=== PATIENT | female | born 1950 | race Caucasian/White ===

== ENCOUNTER 2025-08-27 17:26 | Inpatient (IN) | payer OTHER ==
[~2025-08-27] VITALS: Ht 160 cm; Wt 53.2 kg
--- NOTE | 2025-08-27 17:36 | ED.PDOC ---
Musculoskeletal HPI Comments HPI: 74 year old female presents to the emergency department via EMS with a chief complaint of LT hip pain s/p fall onset today. Per EMS, patient was in her backyard, fell, landing on LT side, was found about 1 hour after by family. Patient states she tripped over her dog's chain, is currently experiencing LT hip pain radiates to Lt leg. Currently rates pain 10/10. Denies LOC, head injury, nausea, vomiting, diarrhea, headache, dizziness, chest pain. No other symptoms or modifying factors present at this time. Initial Vitals BP: 125/81 HR: 101 RR: O2 Sat: 98% Temp: Past Medical history: Arthritis, COPD, HTN Past Surgical history: Denies Medications: Tramadol, Lisinopril Social History: Denies smoking, ETOH, and drug use. Allergies: NKDA FAZZI: FALL, L HIP PAIN, NO OF CONSCIOUSNESS, NO BLOOD THINNERS, NO HEAD INJURY, TRIP AND FALL FROM A STANDING POSITION HPI: Poor Historian. REVIEW OF SYSTEMS: CONSTITUTIONAL: Denies acute: fever, diaphoresis, chills, generalized weakness. HEAD: Denies acute: headache, photophobia Eyes: Denies acute: Double vision, vision loss, eye pain, eye discharge. EARS: Denies acute: tinnitus, hearing loss, ear discharge, ear pain, THROAT: Denies acute: sore throat, swelling, difficulty swallowing , pain with swallowing, change in voice. NECK: Denies acute: neck pain, neck swelling, stiff neck. HEART: Denies acute : chest pain, palpitations, LUNGS: Denies acute: SOB, wheezing, cough, hemoptysis ABDOMEN: Denies acute: abdominal pain, Nausea, Vomiting, diarrhea, melena , hematemesis, hematochezia SKIN: Denies acute: rash, redness, lesions, itchiness. EXTREMITIES: Denies acute: calf pain, numbness, tingling, weakness, denies pain in extremity. Denies acute: Low back pain. Neuro: Denies acute: focal neurological deficit, motor or sensory focal neurological deficit, tremors, seizure like activity, confusion, dizziness, change in mental status, loss of bowel or bladder function, cauda equina like symptoms. : Denies acute: dysuria, hematuria, flank pain, increase in urinary frequency. PSYCH: Denies acute: hallucination, suicidal ideation, homicidal ideation. FEMALE: Denies acute: abnormal vaginal bleeding, foul odor, unusual discharge. PHYSICAL EXAM: General: ----moderate----acute distress, awake and alert. Head: normocephalic, atraumatic. No raccoon's eyes, no myrick sign. Neck: supple, trachea is midline, no swelling. Throat: Normal phonation. Eyes:, no erythema, no purulent discharge, no proptosis, no icterus. Heart: regular rate, regular rhythm, no significant murmur appreciated. Lungs: no apparent respiratory distress, Able to speak in full sentences. No wheezing, no rhonchi, no crackles. No stridors Clear to auscultation bilaterally. Abdomen: non tender to palpation, non distended, soft, no guarding, no rebound, + bowel sounds. Neuro: Awake, Alert, oriented to name, self, situation, follows commands GCS=15. Speech is normal. Skin: no petechia, no purpura, no cyanosis, non-pale, not jaundice. Lower extremities: --no - Pitting edema no deformity, no focal swelling, no calf TTP. Makes eye contact. Decreased range of motion of left lower extremity secondary to left hip pain. Face: no apparent facial droop. Pedal pulses are palpable. ED COURSE: DISCLAIMER: This medical document was created using an electronic medical record system with voice recognition software and computerized dictation system. Although this document has been carefully reviewed, there might still be some phonetic and typographical errors. Occasional wrong-word or "sound-alike" substitutions may have occurred due to the inherent limitations of voice recognition software. These areas are purely typographical due to imperfections of the software programs and do not reflect any compromise in the patient's medical care. Please read the chart carefully and recognize, using context, where these substitutions have occurred. Time Seen by MD: 17:25 Primary Care Provider: JANELLE Castelan Notes: Medications, Allergies Allergies: Coded Allergies: NO KNOWN ALLERGIES (Unverified , 01/11/14) Information Source: Patient, Emergency Med Personnel Mode of Arrival: EMS Timing: Hours Prehospital treatment: None Past Medical History PAST MEDICAL HISTORY: Arthritis, COPD, HTN Surgical History: Denies all surgeries PARACHUTE HARNESS RIGGER History: No Pertinent PARACHUTE HARNESS RIGGER History Family History Family History: Unknown, Unobtainable Social History Smoker: Cigarettes Alcohol: Denies ETOH Use Drugs: Denies Drug Use Lives In: Home Was a procedure done? Was a procedure done?: No X-Ray, Labs, Meds, VS Vital Signs Date Time Temp Pulse Resp B/P (MAP) Pulse Ox O2 Delivery O2 Flow Rate FiO2 08/27/25 21:13 118/58 08/27/25 19:35 105 20 98 Room Air* 0 21 08/27/25 19:16 98.3 113 20 128/72 (90) 96 98.3 08/27/25 18:00 122/69 08/27/25 17:45 113 20 98 Room Air* 0 21 08/27/25 17:35 98.2 103 18 125/81 98 98.2 Lab Test 08/27/25 20:03 08/27/25 17:53 Range/Units Urine Color Pending Urine Clarity Pending Urine pH Pending Urine Specific [place] Pending Urine Protein Pending Urine Ketones Pending Urine Blood Pending Urine Nitrite Pending Urine Bilirubin Pending Urine Urobilinogen Pending Urine Leukocyte Esterase Pending Urine RBC Pending Urine Microscopic WBC Pending Urine Squamous Epithelial Cells Pending Urine Bacteria Pending Urine Glucose Pending White Blood Count 13.1 H 4.4-10.8 10^3/uL Red Blood Count 4.69 4.0-5.20 10^6/uL Hemoglobin 13.7 12.2-16.2 g/dL Hematocrit 42.2 36.0-46.0 % Mean Corpuscular Volume 90.0 80.0-100.0 fL Mean Corpuscular Hemoglobin 29.3 28.0-32.0 pg Mean Corpuscular Hemoglobin Concent 32.5 32.0-36.0 g/dL Red Cell Distribution Width 14.4 H 11.8-14.3 % Platelet Count 299 140-450 10^3/uL Mean Platelet Volume 8.2 6.9-10.8 fL Neutrophils (%) (Auto) 82.1 H 37.0-80.0 % Lymphocytes (%) (Auto) 10.4 10.0-50.0 % Monocytes (%) (Auto) 7.0 0.0-12.0 % Eosinophils (%) (Auto) 0.1 0.0-7.0 % Basophils (%) (Auto) 0.4 0.0-2.0 % Neutrophils # (Auto) 10.8 H 1.6-8.6 10 ^3/uL Lymphocytes # (Auto) 1.4 0.4-5.4 10 ^3/uL Monocytes # (Auto) 0.9 0-1.3 10 ^3/uL Eosinophils # (Auto) 0 0-0.8 10 ^3/uL Basophils # (Auto) 0.1 0-0.2 10 ^3/uL Nucleated Red Blood Cells 0.0 % Sodium Level 138 136-145 mmol/L Potassium Level 4.3 3.5-5.1 mmol/L Chloride Level 105 98-107 mmol/L Carbon Dioxide Level 20 20-31 mmol/L Anion Gap 13 5-15 Blood Urea Nitrogen 30 H 9-23 mg/dL Creatinine 1.33 H 0.550-1.02 mg/dL Glomerular Filtration Rate Calc 42 >90 mL/min BUN/Creatinine Ratio 22.6 H 10.0-20.0 Serum Glucose 173 H 74-106 mg/dL Calcium Level 10.1 8.7-10.4 mg/dL Total Bilirubin 0.3 0.2-1.0 mg/dL Aspartate Amino Transferase (AST) 31 13-40 U/L Alanine Aminotransferase (ALT) 25 7-40 U/L Alkaline Phosphatase 52 46-116 U/L Creatine Kinase 431 H 34-145 U/L Total Protein 6.7 5.7-8.2 g/dL Albumin 4.2 3.2-4.8 g/dL Current Medications Medications (Trade) Dose Ordered Sig/Joana Route Start Time Stop Time Status Last Admin Fentanyl Citrate 100 mcg ONCE ONCE IV 08/27/25 17:45 08/27/25 17:48 DC 08/27/25 18:00 Sodium Chloride 500 ml @ 500 mls/hr Q1H ONCE IV 08/27/25 17:45 08/27/25 18:44 DC 08/27/25 21:14 Fentanyl Citrate 100 mcg ONCE ONCE IV 08/27/25 21:00 08/27/25 21:01 DC 08/27/25 21:[address] [address] Ph: [phone] DIAGNOSTIC IMAGING Diagnostic Imaging Report : [id number] Signed PATIENT: DUANE GUZMÁN ACCT: [id number] UNIT: [id number] : 1950 LOC: ER ROOM / BED: / AGE / SEX: 74 / F ADM STATUS: REG ER SERVICE 28 ORDERING PHYSICIAN: ITZ FINNEGAN DO PROCEDURE(s): RHUM - R HUMERUS XRAY REASON: fall ORDER NUMBER(s): [id number], ACCESSION NUMBER(s): [id number] CLINICAL INDICATION: fall TECHNIQUE: 2 radiographic views of the right humerus were obtained. COMPARISON: None FINDINGS/IMPRESSION: There is no evidence of acute fracture or dislocation. The alignment is anatomical. There is no radiopaque foreign body. ATED BY: JENN CADET DO DICTATED DATE/TIME: 08/27/252099 SIGNED BY: JENN CADET DO SIGNED DATE/TIME: 08/27/252099 CC: Time of 1ST Reevaluation: 17:55 Reevaluation 1ST: Unchanged Patient Education/Counseling: Diagnosis, Treatment Family Education/Counseling: No Family Present Departure 1 Departure Time of Disposition: 18:44 Impression: Primary Impression: Closed comminuted intertrochanteric fracture of femur Disposition: ADMITTED INPATIENT Admit to: [facility] Condition: Guarded Discharged With: Self Critical Care Note Critical Care Time?: No I personally scribed for ITZ FINNEGAN DO ([email or web address]) on 08/27/25 at 17:36. Electronically submitted by Belkis Hernandez ([email or web address]). I personally scribed for ITZ FINNEGAN DO ([email or web address]) on 08/27/25 at 21:27. Electronically submitted by Belkis Hernandez ([email or web address]). ITZ FINNEGAN DO Aug 27, 2025 17:36
[2025-08-27 17:45] VITALS: PULSE 113; RESP 20; O2SAT 98
[2025-08-27] MEDS: fentaNYL CITRATE 100 MCG/2 ML VL IV ONE ×2 (18:00→21:13)
[2025-08-27 18:50] LABS: Hematocrit 42.2 % (36.0-46.0); Hemoglobin 13.7 g/dL (12.2-16.2); Mean Corpuscular Hemoglobin 29.3 pg (28.0-32.0); Mean Corpuscular Volume 90.0 fL (80.0-100.0); Nucleated Red Blood Cells % 0.0 %
--- NOTE | 2025-08-27 19:06 | DVH ---
PROCEDURE: CT CHST AB PEL WO CON-NO IV/ORAL Study Date and Requested Time: 08/27/2025 06:06 PM Study fall COMPARISON: None Dose: CTDI: 6.06 mGy DLP: 405.83 mGycm TECHNIQUE: Multiplanar images obtained through the chest, abdomen and pelvis without contrast FINDINGS: Chest: Enlarged heterogeneous thyroid gland. Partially visualized heart is normal in size. Trace pericardial effusion. No evidence of aortic aneurysm. Mild atherosclerotic calcification of the aorta. Moderate emphysematous changes of the lungs. No pneumothorax or pleural effusion. Right-sided Anterior and Lateral Lung fibrotic changes. No focal consolidation. Nonspecific focus of right middle lobe coarse calcification. No significant mediastinal lymphadenopathy. The soft tissues unremarkable. Mild loss of vertebral body height of T1-T6 of unknown chronicity. Chronic fracture deformity of right lateral 7th rib and right posterolateral 8th rib. Moderate s shaped curvature of the thoracic and lumbar spine. Abdomen and pelvis: Liver, spleen, pancreas and adrenal glands are unremarkable. Gallbladder is moderately distended with gallstones. Otherwise, unremarkable. 5 mm hypodense left renal lesion which may represent a hemorrhagic / proteinaceous cysts. Otherwise, Kidneys, ureters and urinary bladder are unremarkable. Uterus and adnexa are unremarkable. Large hiatal hernia. Otherwise, stomach is unremarkable. Small bowel loops unremarkable. Appendix is unremarkable. Small to moderate amount of fecal material within the colon. Descending colon and Sigmoid diverticulosis without diverticulitis. No evidence of intraperitoneal free air or free fluid. No evidence of aortic aneurysm. [id number] atherosclerotic calcification of the aorta and bilateral iliacs. No significant lymphadenopathy. Small fat containing umbilical hernia. The soft tissues unremarkable. [id number] loss of vertebral body height of L1 of unknown chronicity, likely chronic. Multilevel moderate to severe degenerative changes of the lumbar spine. Chronic fracture deformity of bilateral pubic bones. Acute/subacute appearing displaced intratrochanteric fracture of the left femur IMPRESSION: Acute /subacute displaced comminuted intratrochanteric fracture of the left femur. No evidence of acute intrathoracic or abdominopelvic abnormalities. Emphysematous and fibrotic changes of the lungs. Large hiatal hernia. Descending colon and Sigmoid diverticulosis without diverticulitis. Additional findings as above.
[2025-08-27 19:07] LABS: Alanine Aminotransferase 25 U/L (7-40); Albumin 4.2 g/dL (3.2-4.8); Alkaline Phosphatase 52 U/L (46-116); Anion Gap 13 (5-15); BUN/Creatinine Ratio 22.6 (10.0-20.0); Calcium 10.1 mg/dL (8.7-10.4); Carbon Dioxide 20 mmol/L (20-31); Chloride 105 mmol/L (98-107); Potassium 4.3 mmol/L (3.5-5.1); Sodium 138 mmol/L (136-145); Total Protein 6.7 g/dL (5.7-8.2)
[2025-08-27 19:11] LABS: Bilirubin, Total 0.3 mg/dL (0.2-1.0); Blood Urea Nitrogen 30 mg/dL (9-23); Creatine Kinase IFCC 431 U/L (34-145); Glucose 173 mg/dL (74-106)
[2025-08-27 19:35] VITALS: PULSE 105; RESP 20; O2SAT 98
--- NOTE | 2025-08-27 21:02 | DVH ---
CLINICAL INDICATION: fall TECHNIQUE: 2 radiographic views of the right humerus were obtained. COMPARISON: None FINDINGS/IMPRESSION: There is no evidence of acute fracture or dislocation. The alignment is anatomical. There is no radiopaque foreign body.
[2025-08-27] MEDS: SODIUM CHLORIDE 0.9% 500 ML IV ONE (21:14)
[2025-08-27 21:40] LABS: Urine Protein, UAD Negative (Negative)
[2025-08-27] MEDS ORDERED: MORPHINE SULFATE INJ 2 MG/ml SYRG IV PRN (22:00)
[2025-08-27] MEDS: TEMAZEPAM 15 MG CAP PO SCH (22:11)
--- NOTE | 2025-08-27 22:42 | DVHHPRES ---
History of Present Illness Resident Creating Document: DONTE LIZ RESIDENT History of Present Illness Patient is a 74-year-old female with past medical history of COPD, hypertension, anxiety /depression, insomnia, who presented to the ED with chief complaint of left hip pain status post mechanical fall at 3:30 p.m. today which is 10/10 in intensity, radiating to the left mid thigh. Patient states that she was in her backyard and tripped over dog chain falling to her left side and was found 1 hour after by family. Patient states that she did not hit her head or lose consciousness. Patient denies any dizziness, chest pain, shortness of breath, nausea, vomiting, fever, chills. PMHx: COPD, hypertension, anxiety /depression, insomnia, PSHx: Left knee replacement Family history: reviewed, noncontributory Social history: ex-smoker, denies drinking, drug u Home medication: Tramadol,Vitamin-D,temazepam, lisinopril, citalopram Allergic history: denies Patient seen at bedside. Patient has 10/10 left hip pain. patient denies any nausea, vomiting, fever, chills. Left leg pulses are felt, Patient is able to wiggle her toes and leg is warm to touch. Review of Systems Constitutional: No: Fever, Chills, Sweats, Weakness, Malaise, Other Eyes: No: Pain, Vision change, Conjunctivae inflammation, Eyelid inflammation, Other, Redness ENT: No: Ear pain, Ear discharge, Nose pain, Nose discharge, Nose congestion, Mouth pain, Mouth swelling, Throat pain, Throat swelling, Other Respiratory: No: Cough, Dry, Shortness of breath, SOB with excertion, Wheezing, Hemoptysis, Pleuritic Pain, Sputum, Wheezing, Other Cardiovascular: No: Chest Pain, Palpitations, Orthopnea, Paroxysmal Noc. Dyspnea, Edema, Lt Headedness, Other Gastrointestinal: No: Nausea, Vomiting, Abdominal Pain, Diarrhea, Constipation, Melena, Hematochezia, Other Genitourinary: No Dysuria, No Frequency, No Incontinence, No Hematuria, No Retention, No Other Musculoskeletal: shoulder pain, leg pain; No: other, neck pain, arm pain, back pain, hand pain, foot pain Skin: No: Rash, Lesions, Jaundice, Bruising, Other Neurological: No: Weakness, Numbness, Incoordination, Change in speech, Confusion, Seizures, Other Allergies: Coded Allergies: NO KNOWN ALLERGIES (Unverified , 01/11/14) Medications Current Medications Medications Dose Ordered Sig/Joana Route Start Time Stop Time Status Last Admin Dose Admin Temazepam 15 mg HS PO 08/27/25 22:00 UNV Acetaminophen 650 mg Q6HR PO 08/28/25 00:00 UNV Exam Vital Signs Vital Signs Date Time Temp Pulse Resp B/P (MAP) Pulse Ox O2 Delivery O2 Flow Rate FiO2 08/27/25 21:13 118/58 08/27/25 19:35 105 20 98 Room Air* 0 21 08/27/25 19:16 98.3 98.3 Exam General: Patient alert and oriented in person, place and time. Patient following commands. HEENT: Normocephalic, atraumatic, moist mucous membranes Respiratory/pulmonary: Clear lungs bilaterally, vesicular murmurs present in almost all lung perales, no associated crackles or wheezes. Cardiovascular: Normal heart sounds S1 and S2 with no associated murmurs Abdomen: Abdomen nondistended, there is no pain to palpation in any of the abdominal quadrants, no palpable masses. Extremities: left hip tenderness, patient is able to wiggle left toes Peripheral Pulses: 3+ Radial (R). 3+ Radial (L). 3+ Dorsalis pedis (R). 3+ Dorsalis pedis(L) Skin: multiple bruises all over body Neurological: Intact cranial nerves with no focal neurologic deficits Labs/Xrays Labs Test 08/27/25 20:03 08/27/25 17:53 Range/Units Urine Color Light-yellow Yellow Urine Clarity Clear Clear Urine pH 5.5 5.0-9.0 Urine Specific [place] 1.018 1.001-1.035 Urine Protein Negative Negative Urine Ketones Negative Negative Urine Blood Negative Negative /uL Urine Nitrite Negative Negative Urine Bilirubin Negative Negative Urine Urobilinogen Normal Negative mg/dL Urine Leukocyte Esterase Negative Negative /uL Urine RBC 2 0 - 4 /hpf Urine Microscopic WBC < 1 0-5 /HPF Urine Squamous Epithelial Cells None seen <5 /hpf Urine Bacteria None seen None Seen /hpf Urine Glucose Normal Normal mg/dL White Blood Count 13.1 H 4.4-10.8 10^3/uL Red Blood Count 4.69 4.0-5.20 10^6/uL Hemoglobin 13.7 12.2-16.2 g/dL Hematocrit 42.2 36.0-46.0 % Mean Corpuscular Volume 90.0 80.0-100.0 fL Mean Corpuscular Hemoglobin 29.3 28.0-32.0 pg Mean Corpuscular Hemoglobin Concent 32.5 32.0-36.0 g/dL Red Cell Distribution Width 14.4 H 11.8-14.3 % Platelet Count 299 140-450 10^3/uL Mean Platelet Volume 8.2 6.9-10.8 fL Neutrophils (%) (Auto) 82.1 H 37.0-80.0 % Lymphocytes (%) (Auto) 10.4 10.0-50.0 % Monocytes (%) (Auto) 7.0 0.0-12.0 % Eosinophils (%) (Auto) 0.1 0.0-7.0 % Basophils (%) (Auto) 0.4 0.0-2.0 % Neutrophils # (Auto) 10.8 H 1.6-8.6 10 ^3/uL Lymphocytes # (Auto) 1.4 0.4-5.4 10 ^3/uL Monocytes # (Auto) 0.9 0-1.3 10 ^3/uL Eosinophils # (Auto) 0 0-0.8 10 ^3/uL Basophils # (Auto) 0.1 0-0.2 10 ^3/uL Nucleated Red Blood Cells 0.0 % Sodium Level 138 136-145 mmol/L Potassium Level 4.3 3.5-5.1 mmol/L Chloride Level 105 98-107 mmol/L Carbon Dioxide Level 20 20-31 mmol/L Anion Gap 13 5-15 Blood Urea Nitrogen 30 H 9-23 mg/dL Creatinine 1.33 H 0.550-1.02 mg/dL Glomerular Filtration Rate Calc 42 >90 mL/min BUN/Creatinine Ratio 22.6 H 10.0-20.0 Serum Glucose 173 H 74-106 mg/dL Calcium Level 10.1 8.7-10.4 mg/dL Total Bilirubin 0.3 0.2-1.0 mg/dL Aspartate Amino Transferase (AST) 31 13-40 U/L Alanine Aminotransferase (ALT) 25 7-40 U/L Alkaline Phosphatase 52 46-116 U/L Creatine Kinase 431 H 34-145 U/L Total Protein 6.7 5.7-8.2 g/dL Albumin 4.2 3.2-4.8 g/dL SEPSIS Sepsis Screen Date sepsis recognized/suspect: Aug 27, 2025 Time Sepsis recognized/suspect: 1934 Recent Procedure: No On Antibiotic Therapy: No Respiratory Rate >20: No Heart Rate >90: No Temp<36 C (96.8 F) or >38.3 C: No SBP <90 or MAP <65 mmHG: No New Acute Mental Status Change: No Is the patient on CPAP, BIPAP,: No Physician Orders Plant Science Professor (08/27/25 ) Chst Ab Pel Wo Con-No Iv/Oral (08/27/25 17:32) R Humerus Xray (08/27/25 19:29) Electrocardigram (08/27/25 21:30) Admit (08/27/25 21:54) 2 Gm Sodium Diet (08/28/25 Breakfast) Temazepam (Restoril) (08/27/25 22:00) Complete Blood Count (08/28/25 04:00) Comprehensive Metabolic Panel (08/28/25 04:00) Condition: Serious (08/27/25 21:54) Acetaminophen Tablet (Tylenol Tablet) (08/28/25 00:00) Bedrest With Bathroom Privileg (08/27/25 21:54) Oxygen By Nasal Cannula (08/27/25 21:54) Stat Ekg For Chest Pain (08/27/25 21:54) Notify Md Of Changes From Base (08/27/25 21:54) Rail Maintenance Worker For 24 Hours (08/27/25 21:54) Emergency Dysrhythmia Protocol (08/27/25 21:54) Rhythm Strips Once Every Shift (08/27/25 21:54) Hydrocodone-Acet 7.5/325mg Tab ([place] 7. (08/28/25 02:00) Morphine Sulfate Injection (08/27/25 22:00) Vital Signs Date Time Temp Pulse Resp B/P (MAP) Pulse Ox O2 Delivery O2 Flow Rate FiO2 08/27/25 21:13 118/58 08/27/25 19:35 105 20 98 Room Air* 0 21 08/27/25 19:16 98.3 113 20 128/72 (90) 96 98.3 08/27/25 18:00 122/69 08/27/25 17:45 113 20 98 Room Air* 0 21 08/27/25 17:35 98.2 103 18 125/81 98 98.2 Laboratory Tests Test 08/27/25 17:53 White Blood Count 13.1 10^3/uL (4.4-10.8) H Medications Medications Dose Ordered Sig/Joana Route Start Time Stop Time Status Last Admin Dose Admin Fentanyl Citrate 100 mcg ONCE ONCE IV 08/27/25 17:45 08/27/25 17:48 DC 08/27/25 18:00 100 MCG Fentanyl Citrate 100 mcg ONCE ONCE IV 08/27/25 21:00 08/27/25 21:01 DC 08/27/25 21:13 100 MCG Sodium Chloride 500 ml @ 500 mls/hr Q1H ONCE IV 08/27/25 17:45 08/27/25 18:44 DC 08/27/25 21:14 500 MLS/HR Assessment/Plan Assessment/Plan status post mechanical fall Closed comminuted intertrochanteric fracture of femur Large hiatal hernia. Sigmoid diverticulosis without diverticulitis. - CT scan showed Acute /subacute displaced comminuted intratrochanteric fracture of the left femur. - pain managment - My Orders Orders - DONTE LIZ RESIDENT Procedure Category Date Status Time Admit ADMIT 08/27/25 Transmitted 21:54 2 Gm Sodium Diet DIET 08/28/25 Transmitted Breakfast Temazepam (Restoril) PHA 08/27/25 In Process 22:00 Complete Blood Count LAB 08/28/25 Verified 04:00 Comprehensive LAB 08/28/25 Verified Metabolic Panel 04:00 Condition: Serious FELISA 08/27/25 In Process 21:54 Acetaminophen Tablet PHA 08/28/25 In Process (Tylenol Tablet) 00:00 Bedrest With Bathroom FELISA 08/27/25 In Process Privileg 21:54 Oxygen By Nasal RT 08/27/25 Transmitted Cannula 21:54 Stat Ekg For Chest FELISA 08/27/25 In Process Pain 21:54 Notify Of Changes FELISA 08/27/25 In Process From Base 21:54 Rail Maintenance Worker For [facility] 08/27/25 In Process 24 Hours 21:54 Emergency Dysrhythmia FELISA 08/27/25 In Process Protocol 21:54 Rhythm Strips Once [facility] 08/27/25 In Process Every Shift 21:54 Hydrocodone-Acet PHA 08/28/25 In Process 7.5/325mg Tab ([place] 02:00 Morphine Sulfate PHA 08/27/25 In Process Injection 22:00 DONTE LIZ RESIDENT Aug 27, 2025 22:42
[2025-08-28] VITALS (7 sets, daily range): BP systolic 96–125; BP diastolic 50–69; PULSE 78–89; RESP 16–18; TEMP 98.2–98.7; O2SAT 91–96
[2025-08-28] MEDS: MORPHINE SULFATE 4 MG/ML SYR/VIAL IV PRN (01:33)
[2025-08-28] MEDS: MORPHINE SULFATE 4 MG/ML SYR/VIAL ONE (01:36)
[2025-08-28 06:24] LABS: Hematocrit 35.8 % (36.0-46.0); Hemoglobin 11.8 g/dL (12.2-16.2); Mean Corpuscular Hemoglobin 29.5 pg (28.0-32.0); Mean Corpuscular Volume 89.5 fL (80.0-100.0); Nucleated Red Blood Cells % 0.1 %
[2025-08-28 06:34] LABS: Anion Gap 9 (5-15); Carbon Dioxide 23 mmol/L (20-31); Chloride 107 mmol/L (98-107); Potassium 4.0 mmol/L (3.5-5.1); Sodium 139 mmol/L (136-145)
[2025-08-28 06:35] LABS: Calcium 8.9 mg/dL (8.7-10.4)
[2025-08-28 06:39] LABS: Alkaline Phosphatase 40 U/L (46-116)
[2025-08-28 06:40] LABS: BUN/Creatinine Ratio 20.0 (10.0-20.0); Blood Urea Nitrogen 19 mg/dL (9-23); Glucose 102 mg/dL (74-106)
[2025-08-28 06:42] LABS: Albumin 3.5 g/dL (3.2-4.8); Bilirubin, Total 0.8 mg/dL (0.2-1.0)
[2025-08-28 06:51] LABS: Total Protein 5.7 g/dL (5.7-8.2)
[2025-08-28] MEDS: ACETAMINOPHEN 325 MG TAB PO SCH (06:56)
[2025-08-28 07:08] LABS: Alanine Aminotransferase 22 U/L (7-40)
[2025-08-28 07:15] LABS: Benzodiazephine Screen, Urine Neg (NEGATIVE)
[2025-08-28 07:16] LABS: Amphetamine Screen, Urine Neg (NEGATIVE); Barbiturate Scree,Urine Neg (NEGATIVE); Cannabinoid Screen, Urine Neg (NEGATIVE); Cocaine Screen, Urine Neg (NEGATIVE); Opiate Scree,Urine Neg (NEGATIVE); Phencyclidine Screen, Urine Neg (NEGATIVE)
[2025-08-28 07:26] LABS: INR 1.0 (0.9-1.15); Partial Thromboplastin Time 25.1 SEC (24.5-34.5); Prothrombin Time 10.6 sec (9.3-11.8)
[2025-08-28] MEDS: HYDROcodone-ACET 7.5/325MG TAB PO ONE (07:51)
--- NOTE | 2025-08-28 09:16 | DVH ---
CHEST RADIOGRAPH INDICATION: pre op TECHNIQUE: Single frontal view of the chest was obtained COMPARISON: CT from prior day on August 27, 2025 FINDINGS: Lines and Tubes: None Lungs: * Diffuse reticular opacities may reflect mild pulmonary edema versus atypical pneumonia. * Moderate pulmonary emphysema. * Right mid lung calcified granuloma. Pleura: No effusion. No pneumothorax. Cardiomediastinal contours: Unremarkable Bones: No acute osseous abnormality. IMPRESSION: 1. Diffuse reticular opacities may reflect mild pulmonary edema versus atypical pneumonia. 2. Moderate pulmonary emphysema. 3. Right mid lung calcified granuloma.
--- NOTE | 2025-08-28 10:05 | DVHINCON2 ---
Date of service: Aug 28, 2025 Referring Physician Hospitalist Reason for Consultation Left hip fracture History of Present Illness This is a 74-year-old female who suffered a ground level fall yesterday and was brought to the emergency room where CT revealed a comminuted left proximal femur intertrochanteric fracture for which orthopedic consultation was requested. Patient reports inability to bear weight. Severe pain left hip. Aggravated with any movement. Prior to her injury, she is an independent ambulator without assistive devices. Lives with her family in town. Patient denies any cardiac or neurologic symptoms associated with this fall. Patient denies any history of cardiac disease. She does complain of some chest pain though she feels this is musculoskeletal. Past Medical History PMHx: COPD, hypertension, anxiety /depression, insomnia, PSHx: Left knee replacement Family history: reviewed, noncontributory Social history: ex-smoker quit three years ago, denies drinking, drug use Home medication: Tramadol,Vitamin-D,temazepam, lisinopril, citalopram Allergic history: denies Allergies: Coded Allergies: NO KNOWN ALLERGIES (Unverified , 01/11/14) Current Medications Current Medications Medications (Trade) Dose Ordered Sig/Joana Route PRN Reason Start Time Stop Time Status Last Admin Temazepam (Restoril) 15 mg HS PO 08/27/25 22:00 08/28/25 06:09 DC 08/27/25 22:15 Acetaminophen (Tylenol Tablet) 650 mg Q6HR PO 08/28/25 00:00 Acetaminophen/ Hydrocodone Bitart ([place] 7.5/325MG Tab) 1 tab Q4HP PRN PO MODERATE PAIN (4-6 PAIN SCALE) 08/28/25 02:00 Morphine Sulfate 2 mg Q4HPRN PRN IV SEVERE PAIN (7-10 PAIN SCALE) 08/27/25 22:00 08/28/25 01:31 DC Morphine Sulfate 2 mg Q4HPRN PRN IV SEVERE PAIN (7-10 PAIN SCALE) 08/28/25 01:45 08/28/25 08:16 Temazepam (Restoril) 30 mg HS PO 08/28/25 22:00 Review of Systems She reports being generally sore all over and of course has the severe left hip pain. Positive history of chronic right shoulder pain. No other complaints on 10 point review Vital Signs Vital Signs Date Time Temp Pulse Resp B/P (MAP) Pulse Ox O2 Delivery O2 Flow Rate FiO2 08/28/25 08:46 94 16 105/57 08/28/25 08:00 Room Air* 0 21 08/28/25 05:00 98.6 92 98.6 Physical Exam Well-developed well-nourished female in no acute distress Alert and oriented x4 Left lower extremity is short and rotated Any movement of the left lower extremity causes severe hip pain Diffuse tenderness to palpation left hip No distal edema or calf tenderness Distal neurovascularly intact CT scan reveals a severely comminuted left proximal femur intertrochanteric fracture Right humerus x-rays revealed no fractures. Labs/Diagnostic Data Labs Test 08/28/25 06:40 08/28/25 05:45 08/27/25 20:03 08/27/25 20:02 Range/Units Prothrombin Time 10.6 9.3-11.8 sec Prothrombin Time INR 1.00 0.9-1.15 Activated Partial Thromboplast Time 25.1 24.5-34.5 SEC White Blood Count 6.7 # 4.4-10.8 10^3/uL Red Blood Count 4.00 4.0-5.20 10^6/uL Hemoglobin 11.8 L 12.2-16.2 g/dL Hematocrit 35.8 #L 36.0-46.0 % Mean Corpuscular Volume 89.5 80.0-100.0 fL Mean Corpuscular Hemoglobin 29.5 28.0-32.0 pg Mean Corpuscular Hemoglobin Concent 32.9 32.0-36.0 g/dL Red Cell Distribution Width 14.4 H 11.8-14.3 % Platelet Count 263 140-450 10^3/uL Mean Platelet Volume 8.1 6.9-10.8 fL Neutrophils (%) (Auto) 56.8 37.0-80.0 % Lymphocytes (%) (Auto) 30.2 10.0-50.0 % Monocytes (%) (Auto) 11.9 0.0-12.0 % Eosinophils (%) (Auto) 0.6 0.0-7.0 % Basophils (%) (Auto) 0.5 0.0-2.0 % Neutrophils # (Auto) 3.8 1.6-8.6 10 ^3/uL Lymphocytes # (Auto) 2.0 0.4-5.4 10 ^3/uL Monocytes # (Auto) 0.8 0-1.3 10 ^3/uL Eosinophils # (Auto) 0 0-0.8 10 ^3/uL Basophils # (Auto) 0 0-0.2 10 ^3/uL Nucleated Red Blood Cells 0.1 % Sodium Level 139 136-145 mmol/L Potassium Level 4.0 3.5-5.1 mmol/L Chloride Level 107 98-107 mmol/L Carbon Dioxide Level 23 20-31 mmol/L Anion Gap 9 5-15 Blood Urea Nitrogen 19 # 9-23 mg/dL Creatinine 0.95 0.550-1.02 mg/dL Glomerular Filtration Rate Calc 63 >90 mL/min BUN/Creatinine Ratio 20.0 10.0-20.0 Serum Glucose 102 74-106 mg/dL Calcium Level 8.9 8.7-10.4 mg/dL Total Bilirubin 0.8 0.2-1.0 mg/dL Aspartate Amino Transferase (AST) 32 13-40 U/L Alanine Aminotransferase (ALT) 22 7-40 U/L Alkaline Phosphatase 40 L 46-116 U/L Total Protein 5.7 5.7-8.2 g/dL Albumin 3.5 3.2-4.8 g/dL Urine Color Light-yellow Yellow Urine Clarity Clear Clear Urine pH 5.5 5.0-9.0 Urine Specific [place] 1.018 1.001-1.035 Urine Protein Negative Negative Urine Ketones Negative Negative Urine Blood Negative Negative /uL Urine Nitrite Negative Negative Urine Bilirubin Negative Negative Urine Urobilinogen Normal Negative mg/dL Urine Leukocyte Esterase Negative Negative /uL Urine RBC 2 0 - 4 /hpf Urine Microscopic WBC < 1 0-5 /HPF Urine Squamous Epithelial Cells None seen <5 /hpf Urine Bacteria None seen None Seen /hpf Urine Glucose Normal Normal mg/dL Urine Opiates Screen Neg NEGATIVE Urine Fentanyl Screen Pos NEGATIVE Urine Barbiturates Screen Neg NEGATIVE Urine Phencyclidine Screen Neg NEGATIVE Urine Amphetamines Screen Neg NEGATIVE Urine Benzodiazepines Screen Neg NEGATIVE Urine Cocaine Screen Neg NEGATIVE Urine Cannabinoids Screen Neg NEGATIVE Test 08/27/25 17:53 Range/Units Creatine Kinase 431 H 34-145 U/L Assessment Acute displaced comminuted left proximal femur intertrochanteric fracture Comorbidities as per above Plan/Recommendation This patient will require closed reduction cephalomedullary nail. There was no finished note or comment on medical optimization or surgical risk from the medical team. I will tentatively schedule her for tomorrow morning assuming medical optimization is complete. Patient is at increased risk for complications due to severe COPD and general frailty. I explained the diagnosis, prognosis, procedure, and risks which include but are not limited to bleeding, transfusion, infection, malunion, nonunion, iatrogenic fracture, leg length discrepancy, failure to regain ambulatory status, possibility for requiring future procedures, nerve injury, DVT, PE, and even . The patient understood and agreed to proceed. All questions answered. I am ordering echocardiogram and troponin. Regular diet today and NPO after midnight Ancef preop Plan discussed with: Patient ELLIOTYVETTEDARIAN MD Aug 28, 2025 10:05
[2025-08-28] MEDS: HYDROcodone-ACET 7.5/325MG TAB PO PRN (10:43)
--- NOTE | 2025-08-28 12:24 | DVH ---
CLINICAL INDICATION: preop eval racture TECHNIQUE: XY L HIP COMPLETE XRAY COMPARISON: None FINDINGS/IMPRESSION: : Displaced and comminuted fracture of the intertrochanteric proximal left femur with coxa vera angulation of the of the proximal left femur. Bony demineralization. Mathew catheter projects over the pelvis. Soft tissue swelling over the proximal left femur.
[2025-08-28] MEDS: HYDROmorphone HCL 2 MG/ML VL/or syr IV PRN ×2 (12:47→17:38)
[2025-08-28] MEDS ORDERED: CITA-73 PO (12:59)
[2025-08-28] MEDS ORDERED: LISI20TA56 PO (12:59)
[2025-08-28] MEDS ORDERED: CITA10TA8 PO (13:02)
[2025-08-28] MEDS: CITALOPRAM HYDROBR 20 MG TAB PO ONE (15:17)
--- NOTE | 2025-08-28 16:30 | DVHPN2 ---
Subjective Clinically stable. Scheduled for hip fracture surgery tomorrow. Blood pressure is low normal range. Patient is asymptomatic. Changes from previous H/P or p: No Changes Eyes: No Pain, No Vision change, No Conjunctivae inflammation, No Eyelid inflammation, No Other, No Redness ENT: No Ear pain, No Ear discharge, No Nose pain, No Nose discharge, No Nose congestion, No Mouth pain, No Mouth swelling, No Throat pain, No Throat swelling, No Other Cardiovascular: No Chest Pain, No Palpitations, No Orthopnea, No Paroxysmal Noc. Dyspnea, No Edema, No Lt Headedness, No Other Respiratory: No Cough, No Dry, No Shortness of breath, No SOB with excertion, No Wheezing, No Hemoptysis, No Pleuritic Pain, No Sputum, No Other Gastrointestinal: No Nausea, No Vomiting, No Abdominal Pain, No Diarrhea, No Constipation, No Melena, No Hematochezia, No Other Genitourinary: No Dysuria, No Frequency, No Incontinence, No Hematuria, No Retention, No Other Musculoskeletal: No other, No neck pain; shoulder pain; No arm pain, No back pain, No hand pain; leg pain; No foot pain Skin: No Rash, No Lesions, No Jaundice, No Bruising, No Other Objective Vitals Vital Signs Date Time Temp Pulse Resp B/P (MAP) Pulse Ox O2 Delivery O2 Flow Rate FiO2 08/28/25 13:17 102 16 91/62 08/28/25 13:00 98.2 96 98.2 08/28/25 08:00 Room Air* 0 21 Intake/Output Intake and Output 08/28/25 07:00 Intake Total 0 ml Balance 0 ml Intake Oral 0 ml Exam Alert awake oriented x3. Comfortable in bed without distress. HEENT neck supple no JVD. Heart regular rate and rhythm S1-S2. Lungs fair air movement without wheezing. Abdomen soft positive bowel sounds. Extremities positive distal pedal pulses. Neurologically no focal deficits Medications Current Medications Medications Dose Ordered Sig/Joana Route Start Time Stop Time Status Last Admin Dose Admin Acetaminophen 650 mg Q6HR PO 08/28/25 00:00 08/28/25 12:43 650 MG Acetaminophen/ Hydrocodone Bitart 1 tab Q4HP PRN PO 08/28/25 02:00 08/28/25 10:43 1 TAB Temazepam 30 mg HS PO 08/28/25 22:00 Hydromorphone HCl 0.5 mg Q4HPRN PRN IV 08/28/25 12:30 08/28/25 12:47 0.5 MG Citalopram Hydrobromide 30 mg DAILY PO 08/29/25 10:00 Laboratory Results Laboratory Tests 08/28/25 05:45 Chemistry Test 08/27/25 17:53 08/28/25 05:45 Albumin 4.2 g/dL (3.2-4.8) 3.5 g/dL (3.2-4.8) Calcium Level 10.1 mg/dL (8.7-10.4) 8.9 mg/dL (8.7-10.4) Total Protein 6.7 g/dL (5.7-8.2) 5.7 g/dL (5.7-8.2) Coagulation Test 08/28/25 06:40 Prothrombin Time 10.6 sec (9.3-11.8) Prothrombin Time INR 1.00 (0.9-1.15) Activated Partial Thromboplast Time 25.1 SEC (24.5-34.5) LFT Test 08/27/25 17:53 08/28/25 05:45 Alanine Aminotransferase (ALT) 25 U/L (7-40) 22 U/L (7-40) Alkaline Phosphatase 52 U/L (46-116) 40 U/L (46-116) L Aspartate Amino Transferase (AST) 31 U/L (13-40) 32 U/L (13-40) Total Bilirubin 0.3 mg/dL (0.2-1.0) 0.8 mg/dL (0.2-1.0) Urinalysis Test 08/27/25 20:03 Urine Color Light-yellow (Yellow) Urine Clarity Clear (Clear) Urine pH 5.5 (5.0-9.0) Urine Specific [place] 1.018 (1.001-1.035) Urine Protein Negative (Negative) Urine Ketones Negative (Negative) Urine Blood Negative /uL (Negative) Urine Nitrite Negative (Negative) Urine Bilirubin Negative (Negative) Urine Urobilinogen Normal mg/dL (Negative) Urine Leukocyte Esterase Negative /uL (Negative) Urine RBC 2 /hpf (0 - 4) Urine Microscopic WBC < 1 /HPF (0-5) Urine Squamous Epithelial Cells None seen /hpf (<5) Urine Bacteria None seen /hpf (None Seen) Urine Glucose Normal mg/dL (Normal) Assessment/Plan Assessment/Plan Hold lisinopril due to low normal blood pressure. Normal saline IV fluids. Dilaudid for severe pain. Continue rest of supportive care and treatment. NPO after midnight and proceed with a hip surgery tomorrow. She is at intermediate risk for perioperative complications given her age with a high blood pressure. Discussed with the patient and nurse regarding care plan. Plan discussed with: Patient My Orders Orders - JODI ZAMORANO MD Procedure Category Date Status Time Hydromorphone PHA 08/28/25 In Process Injection (Dilaudid 12:30 Mechanical Soft Diet DIET 08/28/25 Transmitted Dinner Citalopram Tablet PHA 08/29/25 In Process (Celexa Tablet) 10:00 Hydromorphone PHA 08/28/25 Verified Injection (Dilaudid 16:30 NS PHA 08/28/25 Verified 16:30 Problem List: (1) Constipation (2) Hip fracture, right (3) Closed comminuted intertrochanteric fracture of femur Date of Service: Aug 28, 2025 Billing Provider: JODI ZAMORANO MD Common Visit Codes: [id number] INP/OBS CARE(MOD) JODI ZAMORANO MD Aug 28, 2025 16:30
[2025-08-28] MEDS ORDERED: HYDROcodone-ACET 7.5/325MG TAB PO PRN (16:45)
[2025-08-28] MEDS: SODIUM CHLORIDE 0.9% 1,000 ML IV SCH (17:37)
[2025-08-28] MEDS: TEMAZEPAM 15 MG CAP PO SCH (21:37)
[2025-08-29] VITALS (23 sets, daily range): BP systolic 94–145; BP diastolic 53–76; PULSE 78–113; RESP 16–21; TEMP 97.8–99.4; O2SAT 91–100
--- NOTE | 2025-08-29 02:22 | DVHSR ---
APPROVED REPORT EXAM: Two-dimensional and M-mode echocardiogram with Doppler and color Doppler. Blood Pressure: 105/57 mmHg INDICATION pre op RISK FACTORS Height: 5'3, Weight: 120 DIMENSIONS LVDd (3.8-5.7cm) LA (2D) 3.6 (1.9-4.0cm) Aortic Root (2.0-3.7cm) EF (%) 55.0 (55-70%) Rt. Atrium 3.9 (1.9-4.0cm) Asc. Aorta cm Mitral Valve Mitral Mitral Stenosis E wave 0.62m/s MV Mean GR. mmHg A wave 0.86m/s MV Peak GR. mmHg E/A ratio 0.7 2D MVA cm2 DECEL Time 162ms PRESS 1/2 Time ms Aortic Valve Aortic Valve Aortic Stenosis V1 0.95m/s AO Mean GR. 3mmHg V2 1.09m/s AO Peak GR. 5mmHg LVOT Diameter 2.0 (1.8-2.4cm) Doppler MICKEY 2.74cm2 Tricuspid Valve TR Velocity 2.19m/s RVSP 19mmHg Other Information Technically limited study due to body habitus.patient position.pt laying complately flat due to break. Conclusion MODERATELY DILATED RV MILD LVH AND MILD LV DIASTOLIC DYSFUNCTION LV EF IS 55% NORMAL VALVES VERY MILD ANTERIOR PERICARDIAL EFFUSION
[2025-08-29] MEDS: ceFAZolin 2 GM/D5W50ml 50 ML IV ONE (07:01)
[2025-08-29] MEDS ORDERED: MORPHINE SULF PF 5 MG/10 ML VIAL ONE (07:09)
[2025-08-29] MEDS ORDERED: MIDAZOLAM HCL 2MG/2ML 2ml VIAL (1mg/ml) ONE (07:09)
[2025-08-29] MEDS ORDERED: fentaNYL CITRATE 100 MCG/2 ML VL ONE (07:09)
[2025-08-29] MEDS ORDERED: PROPOFOL 10 MG/ML 20 ML IV ONE (07:10)
[2025-08-29] MEDS ORDERED: KETAMINE 50mg/ML 1ml syringe ONE (07:10)
[2025-08-29] MEDS ORDERED: BUPIVACAINE/DEXTROSE MPF 0.75% 2 ML AMP IT ONE (07:10)
[2025-08-29] MEDS ORDERED: GLYCOPYRROLATE 0.2 MG/ML 1ML VIAL ONE (07:10)
--- NOTE | 2025-08-29 08:42 | DVHOP2 ---
Operative Report - 2 Report Details Date: 08/29/25 Preop Diagnosis: Left proximal femur comminuted displaced intertrochanteric fracture Postop Diagnosis: Same Surgeon: Darian Mcpherson MD Anesthesiologist: Richie Anesthesia: Regional Implant: Daryl cephalomedullary short 130 degree nail with 90 mm hip screw, 80 mm derotation screw, 32 mm distal locking screw Consent: The patient was informed of the risks and benefits of the procedure. These include but are not limited to complications of anesthesia, postoperative infection, incomplete relief of symptoms, recurrence of symptoms, damage to blood vessels, nerves and tendons, deep venous thrombosis, pulmonary embolism and possible need for repeat surgery in the future. Complications: None Estimated Blood Loss: 30 cc Fluids: See anesthesia record Findings: As per diagnosis Indications for Surgery: Unstable hip fracture Name of Procedure Performed Left femur intertrochanteric fracture closed reduction cephalomedullary nail C-arm fluoroscopy Procedure Details Procedure Details: The patient was brought to the operating room and spinal anesthetic with adequate analgesia obtained. She was then placed on the [place] table in the supine position. Preop patient received IV Ancef. Nonoperative extremity was placed in the well-leg calvillo. Operative extremity placed in boot traction. Closed reduction maneuver performed and verified with C-arm fluoroscopy in AP and lateral views. Surgical timeout performed verifying patient, laterality and procedure. Operative extremity was prepped and draped in sterile fashion. Incision was made proximal to the greater trochanter then I incised the fascia. I passed a guidewire into the proximal femur and adjusted the position based on AP and lateral views with C arm. I used the soft tissue protector and reamed over the guidewire then guidewire was removed. I then inserted the previously templated nail until appropriate depth was reached based on C-arm fluoroscopy. I then passed the hip screw cannula to skin then made skin and fascial incision and passed it to bone. I inserted a guidewire into the proximal femoral neck and head and again adjusted position based on C arm. I measured for length. I then passed the cannula for the derotation screw, drilled and inserted screw. Cannula removed. I then reamed and inserted the hip screw. Guidewire and cannula were removed. I then used the distal locking cannula through the static hole passing it to skin and making skin and fascial incision then passing it to bone. I drilled and measured length off the drill bit and inserted distal locking screw. I obtain C arm views AP and lateral throughout the length of the construct to verify fracture reduction and hardware placement. Wounds were irrigated with normal saline. Fascial tissue closed with 0 Vicryl. Subcu closed with 2-0 Vicryl. Skin closed with dejuan. Wounds dressed sterilely. Patient tolerated procedure well was brought to recovery in stable condition. Condition Stable Disposition Still a Patient DARIAN MCPHERSON MD Aug 29, 2025 08:42
[2025-08-29] MEDS: LACTATED RINGER'S 1,000 ML IV SCH (08:45)
[2025-08-29] MEDS ORDERED: KETOROLAC TROMETH 30 MG/ML 1ML VIAL IV PRN (09:00)
[2025-08-29] MEDS ORDERED: ONDANSETRON HCL 4 MG/2 ML VIAL IV PRN (09:00)
[2025-08-29] MEDS ORDERED: diphenhydrAMINE HCL 50 MG/1 ML VL IV PRN (09:00)
[2025-08-29] MEDS ORDERED: NALOXONE HCL 0.4 MG/ML VIAL IV PRN (09:00)
[2025-08-29] MEDS: ACETAMINOPHEN IV 1000 MG/100ML (10MG/ML) IV ONE (09:25)
[2025-08-29] MEDS: ENOXAPARIN SOD 40 MG/0.4 ML SYRINGE SC SCH (09:48)
[2025-08-29] MEDS: CITALOPRAM HYDROBR 20 MG TAB PO SCH (09:48)
--- NOTE | 2025-08-29 13:25 | DVH ---
C-ARM FLUOROSCOPY: PROCEDURE: orif left hip FLUOROSCOPY TIME: 57.5 sec DAP: 6.75 mgy FINDINGS: Spot intraoperative C arm radiographs demonstrating orif left hip. IMPRESSION: Please refer to surgical report for detailed findings.
[2025-08-29] MEDS: SODIUM CHLOR 0.9% PF (SALINE LOCK) 10ML VIAL/SYR IV SCH (13:47)
[2025-08-29] MEDS: ceFAZolin 2 GM/D5W50ml 50 ML IV SCH (13:47)
[2025-08-29] MEDS: HYDROCORTISONE SOD SUCC 100 MG/2ML INJ VIAL IV SCH (13:47)
--- NOTE | 2025-08-29 17:16 | DVHPN2 ---
Subjective Clinically stable. Underwent successful hip surgery this morning. Patient's pain is improved. She wants to go home with home health rather than snf facility given she has help at home. Changes from previous H/P or p: No Changes Eyes: No Pain, No Vision change, No Conjunctivae inflammation, No Eyelid inflammation, No Other, No Redness ENT: No Ear pain, No Ear discharge, No Nose pain, No Nose discharge, No Nose congestion, No Mouth pain, No Mouth swelling, No Throat pain, No Throat swelling, No Other Cardiovascular: No Chest Pain, No Palpitations, No Orthopnea, No Paroxysmal Noc. Dyspnea, No Edema, No Lt Headedness, No Other Respiratory: No Cough, No Dry, No Shortness of breath, No SOB with excertion, No Wheezing, No Hemoptysis, No Pleuritic Pain, No Sputum, No Other Gastrointestinal: No Nausea, No Vomiting, No Abdominal Pain, No Diarrhea, No Constipation, No Melena, No Hematochezia, No Other Genitourinary: No Dysuria, No Frequency, No Incontinence, No Hematuria, No Retention, No Other Musculoskeletal: No other, No neck pain; shoulder pain; No arm pain, No back pain, No hand pain; leg pain; No foot pain Skin: No Rash, No Lesions, No Jaundice, No Bruising, No Other Objective Vitals Vital Signs Date Time Temp Pulse Resp B/P (MAP) Pulse Ox O2 Delivery O2 Flow Rate FiO2 08/29/25 16:13 102 16 08/29/25 15:17 139/64 08/29/25 14:47 94 08/29/25 12:38 97.8 97.8 08/29/25 10:00 Nasal Cannula* 2 28 Intake/Output Intake and Output 08/29/25 07:00 Intake Total 310 ml Output Total 600 ml Balance -290 ml Intake Oral 310 ml Output Urine Total 600 ml Exam Alert awake oriented x3. Comfortable in bed without distress. HEENT neck supple no JVD. Heart regular rate and rhythm S1-S2. Lungs fair air movement without wheezing. Abdomen soft positive bowel sounds. Extremities positive distal pedal pulses. Neurologically no focal deficits Medications Current Medications Medications Dose Ordered Sig/Joana Route Start Time Stop Time Status Last Admin Dose Admin Acetaminophen 650 mg Q6HR PO 08/28/25 00:00 08/29/25 06:04 650 MG Temazepam 30 mg HS PO 08/28/25 22:00 08/28/25 21:37 30 MG Citalopram Hydrobromide 30 mg DAILY PO 08/29/25 10:00 08/29/25 09:48 30 MG Hydromorphone HCl 0.4 mg Q6HP PRN IV 08/28/25 16:30 08/29/25 14:47 0.4 MG Sodium Chloride 1,000 ml @ 75 mls/hr [id number] IV 08/28/25 16:30 08/29/25 06:05 75 MLS/HR Lactated Ringer's 1,000 ml @ 100 mls/hr Q10H IV 08/29/25 08:45 Sodium Chloride 10 ml Q8HR IV 08/29/25 14:00 08/29/25 13:47 10 ML Acetaminophen/ Hydrocodone Bitart 1 tab Q4HP PRN PO 08/29/25 08:45 Cefazolin Sodium/ Dextrose 50 ml @ 50 mls/hr Q8HR IV 08/29/25 14:00 08/29/25 22:59 08/29/25 13:47 50 MLS/HR Enoxaparin Sodium 40 mg DAILY SC 08/29/25 10:00 08/29/25 09:48 40 MG Hydrocortisone Sodium Succinate 100 mg Q8HR IV 08/29/25 14:00 08/29/25 13:47 100 MG Diphenhydramine HCl 12.5 mg Q4HP PRN IV 08/29/25 09:00 Ondansetron HCl 4 mg Q4HP PRN IV 08/29/25 09:00 Ketorolac Tromethamine 15 mg Q6HP PRN IV 08/29/25 09:00 09/03/25 08:59 Laboratory Results Laboratory Tests 08/28/25 05:45 Urinalysis Test 08/27/25 20:03 Urine Color Light-yellow (Yellow) Urine Clarity Clear (Clear) Urine pH 5.5 (5.0-9.0) Urine Specific [place] 1.018 (1.001-1.035) Urine Protein Negative (Negative) Urine Ketones Negative (Negative) Urine Blood Negative /uL (Negative) Urine Nitrite Negative (Negative) Urine Bilirubin Negative (Negative) Urine Urobilinogen Normal mg/dL (Negative) Urine Leukocyte Esterase Negative /uL (Negative) Urine RBC 2 /hpf (0 - 4) Urine Microscopic WBC < 1 /HPF (0-5) Urine Squamous Epithelial Cells None seen /hpf (<5) Urine Bacteria None seen /hpf (None Seen) Urine Glucose Normal mg/dL (Normal) Assessment/Plan Assessment/Plan Start her on [place] for pain. DVT GI prophylaxis. Physical therapy evaluation. Social Service consultation for arranging home DME and home PT. If she remains stable consider discharge home tomorrow. Discussed with the patient regarding care plan. Plan discussed with: Patient, Other My Orders Orders - JODI ZAMORANO MD Procedure Category Date Status Time * Wound Consult CONS 08/28/25 Transmitted Npo Except For FELISA 08/29/25 In Process Medications 00:00 Problem List: (1) Closed comminuted intertrochanteric fracture of femur (2) Constipation (3) Urinary tract infection Date of Service: Aug 29, 2025 Billing Provider: JODI ZAMORANO MD Common Visit Codes: [id number] INP/OBS CARE(HIGH) JODI ZAMORANO MD Aug 29, 2025 17:16
[2025-08-30] VITALS (20 sets, daily range): BP systolic 106–155; BP diastolic 51–76; PULSE 54–87; RESP 16–20; TEMP 97.5–99.5; O2SAT 93–96
[2025-08-30 06:21] LABS: Hematocrit 25.2 % (36.0-46.0); Hemoglobin 8.5 g/dL (12.2-16.2); Mean Corpuscular Hemoglobin 29.8 pg (28.0-32.0); Mean Corpuscular Volume 88.7 fL (80.0-100.0); Nucleated Red Blood Cells % 0.0 %
[2025-08-30 06:34] LABS: Anion Gap 4 (5-15); Carbon Dioxide 25 mmol/L (20-31); Potassium 4.2 mmol/L (3.5-5.1); Sodium 137 mmol/L (136-145)
[2025-08-30 06:40] LABS: BUN/Creatinine Ratio 15.2 (10.0-20.0); Blood Urea Nitrogen 15 mg/dL (9-23)
[2025-08-30 06:42] LABS: Calcium 8.2 mg/dL (8.7-10.4); Chloride 108 mmol/L (98-107); Glucose 140 mg/dL (74-106)
[2025-08-30] MEDS: HYDROcodone-ACET 10/325MG TAB PO PRN (08:19)
--- NOTE | 2025-08-30 17:06 | DVHPN2 ---
Eyes: No Pain, No Vision change, No Conjunctivae inflammation, No Eyelid inflammation, No Other, No Redness ENT: No Ear pain, No Ear discharge, No Nose pain, No Nose discharge, No Nose congestion, No Mouth pain, No Mouth swelling, No Throat pain, No Throat swelling, No Other Cardiovascular: No Chest Pain, No Palpitations, No Orthopnea, No Paroxysmal Noc. Dyspnea, No Edema, No Lt Headedness, No Other Respiratory: No Cough, No Dry, No Shortness of breath, No SOB with excertion, No Wheezing, No Hemoptysis, No Pleuritic Pain, No Sputum, No Other Gastrointestinal: No Nausea, No Vomiting, No Abdominal Pain, No Diarrhea, No Constipation, No Melena, No Hematochezia, No Other Genitourinary: No Dysuria, No Frequency, No Incontinence, No Hematuria, No Retention, No Other Musculoskeletal: No other, No neck pain; shoulder pain; No arm pain, No back pain, No hand pain; leg pain; No foot pain Skin: No Rash, No Lesions, No Jaundice, No Bruising, No Other Objective Vitals Vital Signs Date Time Temp Pulse Resp B/P (MAP) Pulse Ox O2 Delivery O2 Flow Rate FiO2 08/30/25 16:57 99.5 71 16 133/76 (95) 96 99.5 08/30/25 08:00 Nasal Cannula* 2 28 Intake/Output Intake and Output 08/30/25 07:00 Intake Total 2495 ml Output Total 1400 ml Balance 1095 ml Intake Oral 1620 ml IV Total 875 ml Output Urine Total 1400 ml Medications Current Medications Medications Dose Ordered Sig/Joana Route Start Time Stop Time Status Last Admin Dose Admin Acetaminophen 650 mg Q6HR PO 08/28/25 00:00 08/30/25 11:50 650 MG Temazepam 30 mg HS PO 08/28/25 22:00 08/29/25 21:06 30 MG Citalopram Hydrobromide 30 mg DAILY PO 08/29/25 10:00 08/30/25 08:19 30 MG Hydromorphone HCl 0.4 mg Q6HP PRN IV 08/28/25 16:30 08/29/25 14:47 0.4 MG Sodium Chloride 1,000 ml @ 75 mls/hr [id number] IV 08/28/25 16:30 08/30/25 08:22 75 MLS/HR Lactated Ringer's 1,000 ml @ 100 mls/hr Q10H IV 08/29/25 08:45 08/30/25 05:02 100 MLS/HR Sodium Chloride 10 ml Q8HR IV 08/29/25 14:00 08/30/25 11:51 10 ML Acetaminophen/ Hydrocodone Bitart 1 tab Q4HP PRN PO 08/29/25 08:45 08/30/25 15:01 1 TAB Hydrocortisone Sodium Succinate 100 mg Q8HR IV 08/29/25 14:00 08/30/25 13:20 100 MG Diphenhydramine HCl 12.5 mg Q4HP PRN IV 08/29/25 09:00 Ondansetron HCl 4 mg Q4HP PRN IV 08/29/25 09:00 Ketorolac Tromethamine 15 mg Q6HP PRN IV 08/29/25 09:00 09/03/25 08:59 Laboratory Results Laboratory Tests 08/30/25 05:50 Chemistry Test 08/30/25 05:50 Calcium Level 8.2 mg/dL (8.7-10.4) L Urinalysis Test 08/27/25 20:03 Urine Color Light-yellow (Yellow) Urine Clarity Clear (Clear) Urine pH 5.5 (5.0-9.0) Urine Specific [place] 1.018 (1.001-1.035) Urine Protein Negative (Negative) Urine Ketones Negative (Negative) Urine Blood Negative /uL (Negative) Urine Nitrite Negative (Negative) Urine Bilirubin Negative (Negative) Urine Urobilinogen Normal mg/dL (Negative) Urine Leukocyte Esterase Negative /uL (Negative) Urine RBC 2 /hpf (0 - 4) Urine Microscopic WBC < 1 /HPF (0-5) Urine Squamous Epithelial Cells None seen /hpf (<5) Urine Bacteria None seen /hpf (None Seen) Urine Glucose Normal mg/dL (Normal) TRAV SUAREZ MD Aug 30, 2025 17:06
[2025-08-31 01:00] VITALS: BP 132/59; PULSE 73; RESP 16; TEMP 97.6; O2SAT 94
[2025-08-31 05:00] VITALS: BP 152/73; PULSE 79; RESP 19; TEMP 98.4; O2SAT 95
[2025-08-31 06:20] LABS: Hematocrit 27.5 % (36.0-46.0); Hemoglobin 9.1 g/dL (12.2-16.2); Mean Corpuscular Hemoglobin 29.3 pg (28.0-32.0); Mean Corpuscular Volume 88.3 fL (80.0-100.0); Nucleated Red Blood Cells % 0.0 %
--- NOTE | 2025-08-31 07:00 | DVHPN2 ---
Progress Note Progress Note S: Hx of Left proximal femur comminuted displaced intertrochanteric fracture, Treated with CMN ORIF by Dr. Jacobson T-2. Today, Patient seen and examined. Pain well controlled 09/11 today. Denies chest or shortness of breath. Denies numbness, paresthesias or weakness. No distress noted. O: AFVSS Exam: NAD, a+ox4, unlabored breathing LLE: dressings c/d/I; fires Q/HS/EHL/FHL/TA/GS muscles; SILT L3-S1; BCR; 2+ DP and PT pulses; BCR A/P: POD#2 s/p L CMN for Left proximal femur comminuted displaced intertrochanteric fracture -IV ABX completed -DVT ppx: SCDs; Blood thinner per Hospitalist protocol -Pain control per hospitalist -WBAT with Walker - Pt has walked with PT yesterday, Doing well -Dispo: home today if cleared by PT and Hospitalist Plan discussed with: Patient, Other Visit Coding Surgery Date of Service if different f: Aug 31, 2025 Billing Provider: SRAVANTHI PERKINS Surgery Visit Codes: 57041 - INP CONSULT <20 MIN SRAVANTHI PERKINS Aug 31, 2025 07:00
[2025-08-31 08:00] VITALS: PULSE 77
[2025-08-31 09:00] VITALS: BP 142/89; PULSE 73; RESP 18; TEMP 99.4; O2SAT 92
[2025-08-31] MEDS: ENOXAPARIN SOD 40 MG/0.4 ML SYRINGE SC SCH (09:14)
[2025-08-31 13:00] VITALS: BP 132/77; PULSE 74; RESP 16; TEMP 98.9; O2SAT 97
[2025-08-31 17:00] VITALS: BP 146/86; PULSE 110; RESP 19; TEMP 98.6; O2SAT 94
--- NOTE | 2025-08-31 19:26 | DVHDS2 ---
Discharge Summary Date of Admission Aug 27, 2025 at 21:54 Labs/Diagnostic Data: Laboratory Results Test 08/31/25 05:45 08/30/25 05:50 08/28/25 06:40 08/28/25 05:45 White Blood Count 11.3 10^3/uL (4.4-10.8) Red Blood Count 3.12 10^6/uL (4.0-5.20) Hemoglobin 9.1 g/dL (12.2-16.2) Hematocrit 27.5 % (36.0-46.0) Mean Corpuscular Volume 88.3 fL (80.0-100.0) Mean Corpuscular Hemoglobin 29.3 pg (28.0-32.0) Mean Corpuscular Hemoglobin Concent 33.2 g/dL (32.0-36.0) Red Cell Distribution Width 14.5 % (11.8-14.3) Platelet Count 281 10^3/uL (140-450) Mean Platelet Volume 8.3 fL (6.9-10.8) Neutrophils (%) (Auto) 79.0 % (37.0-80.0) Lymphocytes (%) (Auto) 11.0 % (10.0-50.0) Monocytes (%) (Auto) 9.8 % (0.0-12.0) Eosinophils (%) (Auto) 0.0 % (0.0-7.0) Basophils (%) (Auto) 0.2 % (0.0-2.0) Neutrophils # (Auto) 9.0 10 ^3/uL (1.6-8.6) Lymphocytes # (Auto) 1.2 10 ^3/uL (0.4-5.4) Monocytes # (Auto) 1.1 10 ^3/uL (0-1.3) Eosinophils # (Auto) 0 10 ^3/uL (0-0.8) Basophils # (Auto) 0 10 ^3/uL (0-0.2) Nucleated Red Blood Cells 0.0 % Sodium Level 137 mmol/L (136-145) Potassium Level 4.2 mmol/L (3.5-5.1) Chloride Level 108 mmol/L (98-107) Carbon Dioxide Level 25 mmol/L (20-31) Anion Gap 4 (5-15) Blood Urea Nitrogen 15 mg/dL (9-23) Creatinine 0.99 mg/dL (0.550-1.02) Glomerular Filtration Rate Calc 60 mL/min (>90) BUN/Creatinine Ratio 15.2 (10.0-20.0) Serum Glucose 140 mg/dL (74-106) Calcium Level 8.2 mg/dL (8.7-10.4) Prothrombin Time 10.6 sec (9.3-11.8) Prothrombin Time INR 1.00 (0.9-1.15) Activated Partial Thromboplast Time 25.1 SEC (24.5-34.5) Total Bilirubin 0.8 mg/dL (0.2-1.0) Aspartate Amino Transferase (AST) 32 U/L (13-40) Alanine Aminotransferase (ALT) 22 U/L (7-40) Alkaline Phosphatase 40 U/L (46-116) Troponin I High Sensitivity 14 ng/L (</=34) Total Protein 5.7 g/dL (5.7-8.2) Albumin 3.5 g/dL (3.2-4.8) Test 08/27/25 20:03 08/27/25 20:02 08/27/25 17:53 Urine Color Light-yellow (Yellow) Urine Clarity Clear (Clear) Urine pH 5.5 (5.0-9.0) Urine Specific [place] 1.018 (1.001-1.035) Urine Protein Negative (Negative) Urine Ketones Negative (Negative) Urine Blood Negative /uL (Negative) Urine Nitrite Negative (Negative) Urine Bilirubin Negative (Negative) Urine Urobilinogen Normal mg/dL (Negative) Urine Leukocyte Esterase Negative /uL (Negative) Urine RBC 2 /hpf (0 - 4) Urine Microscopic WBC < 1 /HPF (0-5) Urine Squamous Epithelial Cells None seen /hpf (<5) Urine Bacteria None seen /hpf (None Seen) Urine Glucose Normal mg/dL (Normal) Urine Opiates Screen Neg (NEGATIVE) Urine Fentanyl Screen Pos (NEGATIVE) Urine Barbiturates Screen Neg (NEGATIVE) Urine Phencyclidine Screen Neg (NEGATIVE) Urine Amphetamines Screen Neg (NEGATIVE) Urine Benzodiazepines Screen Neg (NEGATIVE) Urine Cocaine Screen Neg (NEGATIVE) Urine Cannabinoids Screen Neg (NEGATIVE) Creatine Kinase 431 U/L (34-145) Other Laboratory Tests 08/31/25 05:45 12/29/25 05:50 Condition at Discharge: Stable Final Diagnosis/Problems List Same Discharge Disposition: Still a Patient Discharge Instruct/Medications Scheduled Citalopram Hydrobromide (Celexa), 3 TAB PO DAILY, (Reported) Lisinopril (Lisinopril), 1 TAB PO DAILY, (Reported) Discharge Statement: "Patient was advised to return to the ER or call 911 if any headaches, dizziness, shortness of breath, chest pain, abdominal pain, bleeding, fevers, or worsening of medical condition. Patient was counseled about treatment plan, medications, possible side effects, patientverbalized understanding. All questions were answered to the best of my ability. This discharge took greater then 30 minutes in planning, reviewing documentation, counseling the patient, and discussing with other team members." ASSESSMENT ASSESSMENT Assessment Same TRAV SUAREZ MD Aug 31, 2025 19:26
--- NOTE | 2025-09-01 07:30 | ECG ---
[facility] Test Date: 2025-08-28 Test Time: 14:47:14 Pat Name: DUANE GUZMÁN Department: Respiratoy Room: 0250T B Gender: F [employer]ck Engine Operator: ESME : [id number] Requested By: JODI ZAMORANO Order Number: [id number] Reading MD: Doron Hidalgo Measurements Intervals [place] Rate: 83 P: 61 VA: 154 QRS: -44 QRSD: 96 T: 48 QT: 356 QTc: 419 Interpretive Statements Sinus rhythm Inferior infarct, old Electronically Signed On 09-02-2025 16:03:15 PST by Doron Hidalgo Please click the below link to view image of tracing.
== END 2025-08-31 17:20 | disposition left against medical advice (07) | DRG 481 ==
LOC: EDBD 17:26 → ER 17:26 → OVERFLOW 21:54 → EAST 23:54 → TELE-EAST 08-29 10:18
PROVIDERS: ADMIT Internal Medicine; ATTEND Internal Medicine
PROC: 0QS734Z Reposition Left Upper Femur with Internal Fixation Device, Percutaneous Approach (ICD-10-PCS; principal; 2025-08-29 07:17)
DX: S72.142A Displaced intertrochanteric fracture of left femur, initial encounter for closed fracture (principal); N17.9 Acute kidney failure, unspecified; F32.A Depression, unspecified; I10 Essential (primary) hypertension; J44.9 Chronic obstructive pulmonary disease, unspecified; F17.210 Nicotine dependence, cigarettes, uncomplicated; K44.9 Diaphragmatic hernia without obstruction or gangrene; F41.9 Anxiety disorder, unspecified; Z53.29 Procedure and treatment not carried out because of patient's decision for other reasons; K57.30 Diverticulosis of large intestine without perforation or abscess without bleeding; K59.00 Constipation, unspecified; Z96.652 Presence of left artificial knee joint; Z79.899 Other long term (current) drug therapy; W01.0XXA Fall on same level from slipping, tripping and stumbling without subsequent striking against object, initial encounter; Y93.89 Activity, other specified; Y92.89 Other specified places as the place of occurrence of the external cause; Y99.8 Other external cause status
CPT/HCPCS: 36415; 71045; 71250; 73060; 73502; 74176; 76000; 80048; 80053; 80307; 81001; 82550; 84484; 85025; 85610; 85730; 86850; 86900; 86901; 93005; 93306; 96365; 97110; 97116; 97163; 97530; G0378; J0131; J1100; J2250; J2704